=== PATIENT | male | born 1940 | race Caucasian/White ===

== ENCOUNTER → 2023-07-10 09:49 | Outpatient (REF) | payer MEDICARE, BC, SELFPAY ==
[2023-07-10 11:38] LABS: PSA, Total - Screen 0.73 ng/ml (0.0-4.0)
== END ==
LOC: REG 09:49
PROVIDERS: ATTENDING PHYSICIAN Internal Medicine Geriatric Medicine
DX: Z00.00 Encounter for general adult medical examination without abnormal findings (principal); I25.10 Atherosclerotic heart disease of native coronary artery without angina pectoris; E78.2 Mixed hyperlipidemia; I10 Essential (primary) hypertension; I11.9 Hypertensive heart disease without heart failure; R22.32 Localized swelling, mass and lump, left upper limb; I34.1 Nonrheumatic mitral (valve) prolapse; R97.20 Elevated prostate specific antigen [PSA]; D72.819 Decreased white blood cell count, unspecified; R59.0 Localized enlarged lymph nodes; Z68.26 Body mass index [BMI] 26.0-26.9, adult; Z13.31 Encounter for screening for depression; Z12.5 Encounter for screening for malignant neoplasm of prostate
CPT/HCPCS: G0103

== ENCOUNTER → 2023-09-16 08:53 | Outpatient (REF) | payer MEDICARE, BC, SELFPAY ==
[2023-09-16 10:39] LABS: % Basophils 0.7 % (0-2); % Immature Granulocytes 0.2 % (0-0.5); % Monocytes 8.7 % (1.7-9.3); % Neutrophils 62.4 % (42.2-75.2); Absolute Eosinophils 0.1 10^3/uL (0-0.7); Absolute Lymphocytes 1.2 10^3/uL (1.2-3.4); Absolute Monocytes 0.4 10^3/uL (0.1-0.6); Absolute Neutrophils 2.9 10^3/uL (1.4-6.5); Hematocrit 41.6 % (39.0-52.0); Mean Corp Hgb Conc. 33.7 g/dL (33.0-37.0); Mean Corpuscular Hgb 33.4 pg (27.0-31.0); Mean Corpuscular Volume 99.3 fL (80.0-94.0); Mean Platelet Volume 10.1 fL (7.4-10.4); Nucleated Red Blood Cells % 0 % (-); Platelet Count 172 10^3/uL (130-400); Red Blood Cell Count 4.19 10^6/uL (4.70-6.10); Red Cell Dist. Width 12.4 % (11.5-14.5); White Blood Cell Count 4.6 10^3/uL (4.8-10.8)
[2023-09-16 11:17] LABS: ALT (SGPT) 27 U/L (0-50); AST (SGOT) 39 U/L (17-59); Albumin 4.1 g/dl (3.5-5.0); Alkaline Phosphatase 58 U/L (38-126); Blood Urea Nitrogen 18 mg/dl (9-20); Calcium 9.4 mg/dl (8.4-10.2); Carbon Dioxide 28 mmol/L (22-30); Chloride 108 mmol/L (98-107); Creatine Phosphokinase 166 U/L (55-170); Glucose 82 mg/dl (70-99); HDL Cholesterol 56 mg/dl; LDL Cholesterol, Calculated 58 mg/dl; Potassium 4.4 mmol/L (3.5-5.1); Sodium 139 mmol/L (135-145); Total Bilirubin 1.1 mg/dl (0.2-1.3); Total Cholesterol 134 mg/dl (50-199); Total Protein 6.4 g/dl (6.3-8.2); Triglyceride 103 mg/dl (10-149); Very Low Density Lipoprotein 20 mg/dl (0-30); eGFR > 60.00
[2023-09-16 11:34] LABS: TSH 1.81 uIU/ml (0.47-4.68)
== END ==
LOC: REG 08:53
PROVIDERS: ATTENDING PHYSICIAN Internal Medicine; FAMILY PHYSICIAN Internal Medicine Geriatric Medicine
DX: I05.9 Rheumatic mitral valve disease, unspecified (principal); E78.00 Pure hypercholesterolemia, unspecified; I25.10 Atherosclerotic heart disease of native coronary artery without angina pectoris
CPT/HCPCS: 36415; 80053; 80061; 82550; 84443; 85025

== ENCOUNTER → 2024-03-18 08:01 | Outpatient (REF) | payer MEDICARE, BC, SELFPAY ==
[2024-03-18 09:27] LABS: % Basophils 0.4 % (0-2); % Eosinophils 2.8 % (0-6); % Immature Granulocytes 0.2 % (0-0.5); % Lymphocytes 23.8 % (20.5-51.1); % Neutrophils 60.8 % (42.2-75.2); Absolute Eosinophils 0.1 10^3/uL (0-0.7); Absolute Lymphocytes 1.1 10^3/uL (1.2-3.4); Absolute Monocytes 0.6 10^3/uL (0.1-0.6); Absolute Neutrophils 2.8 10^3/uL (1.4-6.5); Hematocrit 40.4 % (39.0-52.0); Mean Corp Hgb Conc. 34.7 g/dL (33.0-37.0); Mean Corpuscular Hgb 33.9 pg (27.0-31.0); Mean Corpuscular Volume 97.8 fL (80.0-94.0); Mean Platelet Volume 9.9 fL (7.4-10.4); Nucleated Red Blood Cells % 0 % (-); Platelet Count 184 10^3/uL (130-400); Red Blood Cell Count 4.13 10^6/uL (4.70-6.10); Red Cell Dist. Width 12.6 % (11.5-14.5); White Blood Cell Count 4.6 10^3/uL (4.8-10.8)
[2024-03-18 09:58] LABS: ALT (SGPT) 25 U/L (0-50); AST (SGOT) 35 U/L (17-59); Alkaline Phosphatase 49 U/L (38-126); Blood Urea Nitrogen 21 mg/dl (9-20); Calcium 9.5 mg/dl (8.4-10.2); Carbon Dioxide 27 mmol/L (22-30); Chloride 105 mmol/L (98-107); Creatine Phosphokinase 94 U/L (55-170); Glucose 81 mg/dl (70-99); HDL Cholesterol 58 mg/dl; LDL Cholesterol, Calculated 62 mg/dl; Potassium 4.5 mmol/L (3.5-5.1); Sodium 141 mmol/L (135-145); Total Bilirubin 1.1 mg/dl (0.2-1.3); Total Cholesterol 136 mg/dl (50-199); Total Protein 6.3 g/dl (6.3-8.2); Triglyceride 80 mg/dl (10-149); Very Low Density Lipoprotein 16 mg/dl (0-30); eGFR > 60.00
== END ==
LOC: REG 08:01
PROVIDERS: ATTENDING PHYSICIAN Internal Medicine; FAMILY PHYSICIAN Internal Medicine Geriatric Medicine
DX: I25.10 Atherosclerotic heart disease of native coronary artery without angina pectoris (principal); I05.9 Rheumatic mitral valve disease, unspecified; E78.5 Hyperlipidemia, unspecified
CPT/HCPCS: 36415; 80053; 80061; 82550; 85025

== ENCOUNTER → 2024-06-29 08:19 | Outpatient (REF) | payer MEDICARE, BC, SELFPAY ==
[2024-06-29 09:35] LABS: % Basophils 0.7 % (0-2); % Eosinophils 3.5 % (0-6); % Immature Granulocytes 0.5 % (0-0.5); % Lymphocytes 24.2 % (20.5-51.1); % Monocytes 12.3 % (1.7-9.3); % Neutrophils 58.8 % (42.2-75.2); Absolute Eosinophils 0.2 10^3/uL (0-0.7); Absolute Monocytes 0.5 10^3/uL (0.1-0.6); Absolute Neutrophils 2.5 10^3/uL (1.4-6.5); Hemoglobin 14.3 g/dL (13.0-18.0); Mean Corp Hgb Conc. 33.3 g/dL (33.0-37.0); Mean Corpuscular Hgb 32.9 pg (27.0-31.0); Mean Corpuscular Volume 99.1 fL (80.0-94.0); Mean Platelet Volume 9.6 fL (7.4-10.4); Nucleated Red Blood Cells % 0 % (-); Platelet Count 195 10^3/uL (130-400); Red Blood Cell Count 4.34 10^6/uL (4.70-6.10); Red Cell Dist. Width 12.5 % (11.5-14.5); White Blood Cell Count 4.3 10^3/uL (4.8-10.8)
[2024-06-29 09:49] LABS: Urine Albumin Negative (Neg - Trace); Urine Bilirubin Negative (Negative); Urine Character Clear (Clear); Urine Color Yellow; Urine Glucose Negative (Negative); Urine Ketone Negative (Negative); Urine Leukocyte Negative (Negative); Urine Nitrite Negative (Negative); Urine Occult Blood 1+ (Negative); Urine Urobilinogen Negative (Neg - 1+); Urine pH 6.5 (5.0-9.0)
[2024-06-29 10:16] LABS: ALT (SGPT) 24 U/L (0-50); AST (SGOT) 30 U/L (17-59); Albumin 4.1 g/dl (3.5-5.0); Alkaline Phosphatase 65 U/L (38-126); Blood Urea Nitrogen 20 mg/dl (9-20); Calcium 9.6 mg/dl (8.4-10.2); Carbon Dioxide 29 mmol/L (22-30); Chloride 104 mmol/L (98-107); Glucose 78 mg/dl (70-99); HDL Cholesterol 60 mg/dl; LDL Cholesterol, Calculated 75 mg/dl; Potassium 4.8 mmol/L (3.5-5.1); Sodium 139 mmol/L (135-145); Total Bilirubin 1.1 mg/dl (0.2-1.3); Total Cholesterol 146 mg/dl (50-199); Total Protein 6.1 g/dl (6.3-8.2); Triglyceride 57 mg/dl (10-149); Very Low Density Lipoprotein 11 mg/dl (0-30); eGFR > 60.00
[2024-06-29 10:18] LABS: Erythrocyte Sed Rate 8 mm/hour (0-20)
[2024-06-29 10:26] LABS: Urine Mucus Many
[2024-06-29 10:30] LABS: Urine Amorphous Seen; Urine Urothelial Cell 0-2 /LPF (FEW); Urine White Cell 0-2 /HPF (0-5)
[2024-06-29 10:36] LABS: Vitamin D, 25-OH*** 104 ng/mL (30-80)
[2024-06-29 10:49] LABS: PSA, Total - Screen 0.56 ng/ml (0.0-4.0); TSH 1.57 uIU/ml (0.47-4.68)
== END ==
LOC: REG 08:19
PROVIDERS: ATTENDING PHYSICIAN Internal Medicine Geriatric Medicine; OTHER PHYSICIAN Internal Medicine
DX: Z00.00 Encounter for general adult medical examination without abnormal findings (principal); E78.2 Mixed hyperlipidemia; I25.10 Atherosclerotic heart disease of native coronary artery without angina pectoris; I11.9 Hypertensive heart disease without heart failure; R22.32 Localized swelling, mass and lump, left upper limb; I34.1 Nonrheumatic mitral (valve) prolapse; R97.20 Elevated prostate specific antigen [PSA]; D72.819 Decreased white blood cell count, unspecified; R59.0 Localized enlarged lymph nodes; Z68.26 Body mass index [BMI] 26.0-26.9, adult; Z13.31 Encounter for screening for depression; M54.2 Cervicalgia; E03.9 Hypothyroidism, unspecified
CPT/HCPCS: 36415; 80053; 80061; 81003; 81015; 82306; 84443; 85025; 85652; G0103

== ENCOUNTER → 2024-07-01 10:54 | Outpatient (REF) | payer MEDICARE, BC, SELFPAY ==
[2024-07-01 11:36] LABS: Urine Albumin Negative (Neg - Trace); Urine Bilirubin Negative (Negative); Urine Character Clear (Clear); Urine Color Yellow; Urine Glucose Negative (Negative); Urine Ketone Negative (Negative); Urine Leukocyte Negative (Negative); Urine Nitrite Negative (Negative); Urine Occult Blood Negative (Negative); Urine Urobilinogen Negative (Neg - 1+)
== END ==
LOC: REG 10:54
PROVIDERS: ATTENDING PHYSICIAN Internal Medicine Geriatric Medicine
DX: R31.29 Other microscopic hematuria (principal)
CPT/HCPCS: 81003

== ENCOUNTER → 2024-07-05 09:14 | Outpatient (REF) | payer MEDICARE, BC, SELFPAY | LOC: RAD 09:14 | PROVIDERS: ATTENDING PHYSICIAN Internal Medicine Geriatric Medicine | DX: Z00.00 Encounter for general adult medical examination without abnormal findings (principal); E78.2 Mixed hyperlipidemia; I25.10 Atherosclerotic heart disease of native coronary artery without angina pectoris; I10 Essential (primary) hypertension; I11.9 Hypertensive heart disease without heart failure; R22.32 Localized swelling, mass and lump, left upper limb; I34.1 Nonrheumatic mitral (valve) prolapse; R97.20 Elevated prostate specific antigen [PSA]; Z23 Encounter for immunization; D72.819 Decreased white blood cell count, unspecified; R59.0 Localized enlarged lymph nodes; Z68.26 Body mass index [BMI] 26.0-26.9, adult; Z13.31 Encounter for screening for depression; M54.2 Cervicalgia; E03.9 Hypothyroidism, unspecified | CPT/HCPCS: 93880 ==

== ENCOUNTER → 2024-08-28 08:57 | Outpatient (REF) | payer MEDICARE, BC, SELFPAY ==
[2024-08-28 18:43] LABS: Urine Albumin Negative (Neg - Trace); Urine Bilirubin Negative (Negative); Urine Character Clear (Clear); Urine Color Yellow; Urine Glucose Negative (Negative); Urine Ketone Negative (Negative); Urine Leukocyte 2+ (Negative); Urine Nitrite Negative (Negative); Urine Occult Blood Negative (Negative); Urine Specific Gravity 1.015 (<1.030); Urine Urobilinogen Negative (Neg - 1+)
[2024-08-28 20:09] LABS: Urine Bacteria Few (Negative); Urine Red Blood Cell 0-2 /HPF (0-2); Urine Squamous Cell 16-20 /LPF (Few)
== END ==
LOC: CLAB 08:57
PROVIDERS: ATTENDING PHYSICIAN Specialist
DX: R35.0 Frequency of micturition (principal)
CPT/HCPCS: 81003; 81015; 87086

== ENCOUNTER → 2024-09-13 09:09 | Outpatient (REF) | payer MEDICARE, BC, SELFPAY ==
[2024-09-13 10:00] LABS: % Basophils 0.9 % (0-2); % Immature Granulocytes 0.2 % (0-0.5); % Lymphocytes 27.4 % (20.5-51.1); % Monocytes 10.4 % (1.7-9.3); % Neutrophils 59.1 % (42.2-75.2); Absolute Eosinophils 0.1 10^3/uL (0-0.7); Absolute Lymphocytes 1.2 10^3/uL (1.2-3.4); Absolute Monocytes 0.5 10^3/uL (0.1-0.6); Absolute Neutrophils 2.6 10^3/uL (1.4-6.5); Hematocrit 40.6 % (39.0-52.0); Hemoglobin 13.7 g/dL (13.0-18.0); Mean Corp Hgb Conc. 33.7 g/dL (33.0-37.0); Mean Corpuscular Hgb 32.9 pg (27.0-31.0); Mean Corpuscular Volume 97.6 fL (80.0-94.0); Mean Platelet Volume 9.2 fL (7.4-10.4); Nucleated Red Blood Cells % 0 % (-); Platelet Count 198 10^3/uL (130-400); Red Blood Cell Count 4.16 10^6/uL (4.70-6.10); Red Cell Dist. Width 12.4 % (11.5-14.5); White Blood Cell Count 4.4 10^3/uL (4.8-10.8)
[2024-09-13 11:02] LABS: ALT (SGPT) 34 U/L (0-50); AST (SGOT) 37 U/L (17-59); Albumin 3.8 g/dl (3.5-5.0); Alkaline Phosphatase 59 U/L (38-126); Blood Urea Nitrogen 17 mg/dl (9-20); Calcium 9.2 mg/dl (8.4-10.2); Carbon Dioxide 28 mmol/L (22-30); Chloride 107 mmol/L (98-107); Glucose 88 mg/dl (70-99); HDL Cholesterol 47 mg/dl; LDL Cholesterol, Calculated 44 mg/dl; Potassium 4.8 mmol/L (3.5-5.1); Sodium 142 mmol/L (135-145); Total Bilirubin 0.7 mg/dl (0.2-1.3); Total Cholesterol 102 mg/dl (50-199); Total Protein 5.9 g/dl (6.3-8.2); Triglyceride 58 mg/dl (10-149); Very Low Density Lipoprotein 11 mg/dl (0-30); eGFR > 60.00
== END ==
LOC: REG 09:09
PROVIDERS: ATTENDING PHYSICIAN Internal Medicine; FAMILY PHYSICIAN Internal Medicine Geriatric Medicine
DX: I25.10 Atherosclerotic heart disease of native coronary artery without angina pectoris (principal); I05.9 Rheumatic mitral valve disease, unspecified; E78.00 Pure hypercholesterolemia, unspecified
CPT/HCPCS: 36415; 80053; 80061; 85025

== ENCOUNTER → 2025-03-21 09:12 | Outpatient (REF) | payer MEDICARE, BC, SELFPAY ==
[2025-03-21 09:51] LABS: Hematocrit 41.7 % (39.0-52.0); Hemoglobin 13.3 g/dL (13.0-18.0); Mean Corp Hgb Conc. 31.9 g/dL (33.0-37.0); Mean Corpuscular Volume 99.0 fL (80.0-94.0); Nucleated Red Blood Cells % 0 % (-); Platelet Count 196 10^3/uL (130-400); Red Cell Dist. Width 13.1 % (11.5-14.5)
[2025-03-21 10:17] LABS: ALT (SGPT) 41 U/L (0-50); AST (SGOT) 46 U/L (17-59); Albumin 3.9 g/dl (3.5-5.0); Alkaline Phosphatase 78 U/L (38-126); Blood Urea Nitrogen 17 mg/dl (9-20); Calcium 9.6 mg/dl (8.4-10.2); Carbon Dioxide 30 mmol/L (22-30); Chloride 108 mmol/L (98-107); Glucose 89 mg/dl (70-99); HDL Cholesterol 56 mg/dl; LDL Cholesterol, Calculated 39 mg/dl; Potassium 5.0 mmol/L (3.5-5.1); Sodium 139 mmol/L (135-145); Total Protein 6.4 g/dl (6.3-8.2); Very Low Density Lipoprotein 9 mg/dl (0-30); eGFR > 60.00
[2025-03-21 10:58] LABS: TSH 0.55 uIU/ml (0.47-4.68)
== END ==
LOC: REG 09:12
PROVIDERS: ATTENDING PHYSICIAN Internal Medicine; FAMILY PHYSICIAN Internal Medicine Geriatric Medicine
DX: I25.10 Atherosclerotic heart disease of native coronary artery without angina pectoris (principal); I11.9 Hypertensive heart disease without heart failure; I05.9 Rheumatic mitral valve disease, unspecified; E78.00 Pure hypercholesterolemia, unspecified
CPT/HCPCS: 36415; 80053; 80061; 82550; 84443; 85025